=== PATIENT | male | born 1990 | race Caucasian/White ===

== ENCOUNTER 2021-02-08 16:44 | Emergency (ER) | payer OTHER ==
[2021-02-08 17:31] LABS: AMPHETAMINES NEGATIVE (NEGATIVE); BARBITURATES NEGATIVE (NEGATIVE); ECSTASY (MDMA) NEGATIVE (NEGATIVE); MARIJUANA (THC) NEGATIVE (NEGATIVE); METHADONE NEGATIVE (NEGATIVE); OPIATES NEGATIVE (NEGATIVE); OXYCODONE NEGATIVE (NEGATIVE)
== END 2021-02-08 17:55 | disposition home or self-care (01) ==
LOC: FER 16:44
PROVIDERS: Emergency Medicine
DX: R44.0 Auditory hallucinations (principal); F19.11 Other psychoactive substance abuse, in remission; J45.909 Unspecified asthma, uncomplicated
CPT/HCPCS: 80305; 99284